=== PATIENT | male | born 1955 | race Caucasian/White ===

== ENCOUNTER 2019-03-01 00:52 | Emergency (ER) | payer OTHER ==
[~2019-03-01] VITALS: Ht 165.1 cm; Wt 75.5 kg
[2019-03-01 01:00] VITALS: Ht 165.1 cm; Wt 75.5 kg
[2019-03-01 06:00] VITALS: BP 126/78
== END 2019-03-01 06:00 | disposition home or self-care (01) ==
LOC: ED 00:52
DX: N20.0 Calculus of kidney (principal)

== ENCOUNTER 2019-03-18 11:26 | Emergency (ER) | payer BC ==
[2019-03-18 13:22] LABS: BASOPHIL % 0.5 % (0-2); PLATELET COUNT 266 x10^3mcL (130-400); RED CELL DISTRIBUTION WIDTH 13.6 % (11.5-14.5)
[2019-03-18 13:32] LABS: CALCIUM 8.6 mg/dL (8.5-10.1); CARBON DIOXIDE 25.2 mmol/L (21-32); CREATININE SERUM 1.6 mg/dL (0.7-1.3)
[2019-03-18 13:35] LABS: ALBUMIN 3.7 g/dL (3.4-5.0)
[2019-03-18 13:51] LABS: BILIRUBIN TOTAL 0.7 mg/dL (0.20-1.00); TOTAL PROTEIN, SERUM 7.3 g/dL (6.4-8.2)
[2019-03-18 14:30] LABS: UA SPECIFIC GRAVITY 1.015 (1.005-1.035); microscopic required? YES; urine erythrocyte 3+ (NEGATIVE)
[2019-03-18 18:14] VITALS: BP 111/62
== END 2019-03-18 18:14 | disposition home or self-care (01) ==
LOC: ED 11:26
PROVIDERS: Emergency Medicine
DX: G89.18 Other acute postprocedural pain (principal); Z87.442 Personal history of urinary calculi
CPT/HCPCS: J1885; J2405; J3010; J7030